=== PATIENT | female | born 1970 | race Caucasian/White ===

== ENCOUNTER 2016-10-07 15:57 | Outpatient (CLI) ==
[2016-06-01 17:43] VITALS: BMI 23.0
== END 2016-10-07 15:58 | disposition home or self-care (01) ==
LOC: LAB 15:57
PROVIDERS: ATTEND Emergency Medicine
DX: Z00.00 Encounter for general adult medical examination without abnormal findings (principal)

== ENCOUNTER 2017-05-21 08:42 | Outpatient (CLI) ==
[2016-06-01 17:43] VITALS: BMI 23.0
[2017-05-21 09:07] LABS: BASOPHILS # (AUTO) 0.1 K/uL (0-0.2); BASOPHILS % (AUTO) 1.1 % (0.0-3.0); EOSINOPHILS # (AUTO) 0.3 K/ul (0.0-0.7); EOSINOPHILS % (AUTO) 4.6 % (0.0-7.0); HEMATOCRIT 34.5 % (37.0-47.0); HEMOGLOBIN 10.1 g/dl (12.0-16.0); IMMATURE GRANULOCYTE % (AUTO) 0.2 % (0.0-5.0); LYMPHOCYTES # (AUTO) 2.1 K/uL (0.60-3.4); LYMPHOCYTES % (AUTO) 32.7 (10.0-50.0); MEAN CORPUSCULAR HEMOGLOBIN 18.2 pg (27.0-31.0); MEAN CORPUSCULAR HGB CONC 29.3 (31.8-35.4); MEAN CORPUSCULAR VOLUME 62.3 fl (81.0-99.0); MONOCYTES # (AUTO) 0.4 K/uL (0.4-2.0); MONOCYTES % (AUTO) 6.6 (0-10); NEUTROPHILS # (AUTO) 3.5 K/ul (2.0-6.9); NEUTROPHILS % (AUTO) 54.8; PLATELET COUNT 373 10^3/uL (140-440); RED BLOOD COUNT 5.54 10^6/ul (4.20-5.40); WHITE BLOOD COUNT 6.33 K/ul (4.6-10.2)
[2017-05-21 09:33] LABS: ANISOCYTOSIS 1+ (NOT PRESENT); MICROCYTOSIS 2+ (NOT PRESENT)
[2017-05-21 09:44] LABS: ALANINE AMINOTRANSFERASE < 6 U/L (12-78); ALBUMIN 4.1 g/dL (3.4-5.0); ALBUMIN/GLOBULIN RATIO 0.82; ALKALINE PHOSPHATASE 58 U/L (42-98); ANION GAP 10.9; ASPARTATE AMINO TRANSFERASE 15 U/L (15-37); BILIRUBIN,TOTAL 0.28 mg/dL (0.00-1.20); BLOOD UREA NITROGEN 13 mg/dL (7-18); BUN/CREATININE RATIO 15.66; CARBON DIOXIDE 27 mmol/L (21-32); CHLORIDE 103 mmol/L (98-107); CHOL/HDL RATIO 4.7 (4.5-5.5); CHOLESTEROL 215 mg/dL (0-200); CREATININE 0.83 mg/dL (0.60-1.30); GLUCOSE 91 mg/dL (70-110); HDL CHOLESTEROL 46 mg/dL (35-80); POTASSIUM 3.9 mmol/L (3.5-5.10); SODIUM 137 mmol/L (136-145); TOTAL PROTEIN 9.1 g/dL (6.4-8.2); TRIGLYCERIDES 87 mg/dL (30-150); VLDL CHOLESTEROL 17 mg/dL (2-30)
== END 2017-05-21 08:43 | disposition home or self-care (01) ==
LOC: LAB 08:42
PROVIDERS: ATTEND Nurse Practitioner Family
DX: Z00.00 Encounter for general adult medical examination without abnormal findings (principal); M79.602 Pain in left arm; R07.9 Chest pain, unspecified
CPT/HCPCS: 36415; 80053; 80061; 84443; 85008; 85025; 93005; 93010

== ENCOUNTER 2017-12-12 14:06 | Outpatient (CLI) ==
[2016-06-01 17:43] VITALS: BMI 23.0
--- NOTE | 2017-12-12 14:51 | CT ---
EXAM: CT of the abdomen pelvis without contrast History: Bilateral flank pain, abdominal and pelvic trauma, hematuria. Technique: Multiplanar CT images through the abdomen pelvis were obtained without the administration of IV contrast Findings: Lung bases are clear. No acute osseous abnormalities. No discrete gallstones identified by CT. No focal liver or splenic lesions. No renal stones and no hydronephrosis. The visualized appendix is not dilated or inflamed. No peripancreatic inflammation. Adrenal glands are unremarkable. No dilated loops of bowel. Tiny fat containing umbilical hernia. Bladder is not well distended. There is a small amount of pelvic fluid. 5.1 cm right adnexal mass versus enlarged right ovary. 3.4 cm left adnexal cyst. Impression: 1. Right adnexal mass versus enlarged right ovary and left adnexal cyst. Recommend further evaluatio n with pelvic ultrasound. 2. Small amount of pelvic fluid.
== END 2017-12-12 14:07 | disposition home or self-care (01) ==
LOC: RAD 14:06
PROVIDERS: ATTEND Nurse Practitioner Family
DX: R10.9 Unspecified abdominal pain (principal); R10.817 Generalized abdominal tenderness; R31.21 Asymptomatic microscopic hematuria; W13.3XXA Fall through floor, initial encounter

== ENCOUNTER 2017-12-17 12:45 | Outpatient (CLI) ==
[2016-06-01 17:43] VITALS: BMI 23.0
--- NOTE | 2017-12-17 14:33 | US ---
EXAM: Transvaginal pelvic ultrasound. History: Right adnexal mass. Comparison: CT abdomen pelvis 12/12/2017 Technique: Multiple sonographic images through the pelvis were obtained. Color duplex Doppler was u sed to interrogate vascular flow. Findings: The uterus measures 11 cm x 6 cm x 6 cm. 6 nanometers Nabothian cyst seen within the cerv ix. Small to moderate amount of free pelvic fluid. Endometrium is thickened measuring 2.1 cm in thi ckness. There may be individual polyps within the endometrium. 3.2 cm anechoic cyst within the left ovary. The right ovary is mildly enlarged. Blood flow was docu mented within the right ovary. 3.6 cm complicated cyst within the right ovary. Blood flow was docume nted within the left ovary. Impression: 1. Endometrial thickening. Differential diagnosis includes polyps, hyperplasia or endometrial carcin richa. 2. Moderate amount of free pelvic fluid. 3. Complicated right ovarian cyst requires follow-up ultrasound in 6-10 weeks off cycle. 4. Simple left ovarian cyst.
== END 2017-12-17 12:46 | disposition home or self-care (01) ==
LOC: RAD 12:45
PROVIDERS: ATTEND Nurse Practitioner Family
DX: Z12.31 Encounter for screening mammogram for malignant neoplasm of breast (principal); N94.9 Unspecified condition associated with female genital organs and menstrual cycle
CPT/HCPCS: 77067

== ENCOUNTER 2017-12-26 10:20 | Outpatient (CLI) ==
[2016-06-01 17:43] VITALS: BMI 23.0
--- NOTE | 2017-12-26 11:43 | US ---
EXAM: Digital diagnostic right breast mammogram HISTORY: Unspecified lump in right breast COMPARISON: Screening mammogram 12/17/2017 FINDINGS: Mammogram: . Digital spot compression MLO and CC views of the right and left breast were performed. There is a ma ss in the right breast upper outer quadrant, 5 cm from the nipple. Ultrasound: At the 10 o'clock position and 4 - 5 cm from the nipple, there is a hypoechoic mass measuring 0.6 x 0 .5 x 0.6 cm, corresponding to the finding on mammogram. The finding was personally reviewed on real t [place] ultrasound. At the 1 o'clock position, 4 - 5 cm from the nipple, there is a ovoid well marginated hypoechoic stru cture. This finding was personally reviewed on real time ultrasound and is favored to represent sligh tly asymmetric normal fibroglandular tissue or possibly a complex cyst or fibroadenoma. IMPRESSION: 1. Right breast mass. This finding is suspicious. Tissue sampling is recommended. BIRADS category 4 2. Additional probably benign finding in the right breast. Sonographic follow-up recommended in 6 m [facility] to ensure stability of this finding. BIRADS category 3 BIRADS category 4, suspicious
== END 2017-12-26 10:21 | disposition home or self-care (01) ==
LOC: RAD 10:20
PROVIDERS: ATTEND Nurse Practitioner Family
DX: N63.10 Unspecified lump in the right breast, unspecified quadrant (principal)

== ENCOUNTER 2018-01-27 08:13 | Outpatient (CLI) ==
[2016-06-01 17:43] VITALS: BMI 23.0
--- NOTE | 2018-01-27 09:38 | US ---
EXAM: Ultrasound Transvaginal Non-obstetrical. HISTORY: Bilateral ovarian cyst follow up. COMPARISON: 12/17/2017. TECHNIQUE: [place] scale and color doppler images with transvaginal probe. FINDINGS: The uterus measures 12.2 x 6.7 x 6.8 cm. Endometrial stripe measures 2.3 cm with two prom inent rounded echogenic masses within the endometrial cavity measuring up to 1.5 cm diameter. Both t hin cyst seen in the cervix. Right ovary measures 5.9 x 2.2 x 3.1 cm and contains a 3.6 x 2.5 x 2.4 cm stable hypoechoic mass with posterior enhancement. The left ovary measures 5.3 x 0.3 x 3.4 cm and contains a 3.1 x 2.7 x 2.1 cm thin-walled circumscribed anechoic mass with posterior enhancement. Vascular flow present in both o varies. Small amount of free pelvic fluid noted. IMPRESSION: 1. Echogenic endometrial masses most likely represent polyps or submucosal fibroids. Consider sonoh ysterogram or hysteroscopy for further evaluation. 2. Bilateral ovarian cysts, complicated on the right, which require continued follow-up.
== END 2018-01-27 08:14 | disposition home or self-care (01) ==
LOC: RAD 08:13
PROVIDERS: ATTEND Obstetrics & Gynecology Gynecology
DX: N83.202 Unspecified ovarian cyst, left side (principal)